=== PATIENT | female | born 1985 | race Caucasian/White ===

== ENCOUNTER 2018-02-27 08:24 | Day surgery (SDC) | payer OTHER ==
--- NOTE | 2018-02-27 20:09 | SS ---
DATE OF SERVICE: 02/27/2018 LABOR AND DELIVERY TRIAGE EVALUATION NOTE REGULAR PHYSICIAN: Valeria Paulino M.D. EVALUATING PHYSICIAN: Dave Richmond M.D. CHIEF COMPLAINT: Contractions at home. HISTORY OF PRESENT ILLNESS: Ms. Rivera is a 31-year-old white G2, P1-0-0-1 with an estimated date of confinement of 03/14/2018 who presents complaining of uterine contractions at home since 02:00 a.m. She denies ruptured membranes or vaginal bleeding. Her care with Dr. Paulino has been reportedly uncomplicated. PAST OBSTETRICAL HISTORY: Includes 1 vaginal delivery at term of a 7-pound . PAST MEDICAL HISTORY: None. PAST SURGICAL HISTORY: None. CURRENT MEDICATIONS: vitamins. ALLERGIES: PENICILLIN, which gives her a rash. SOCIAL HISTORY: She smokes, but she denies alcohol or illicit drug use. FAMILY HISTORY: Denies pelvic malignancy. REVIEW OF SYSTEMS: Contractions at home, but denies nausea, vomiting, fever, chills, ruptured membranes or vaginal bleeding. PHYSICAL EXAMINATION: VITAL SIGNS: Blood pressure in triage is 119/68, pulse is 80, respirations 20, temperature 98.7, O2 saturation 100% on room air. ABDOMEN: Soft, nontender and gravid. Vaginal examination initially by the labor nurse in triage shows her to be 2 cm dilated, 50% effaced with the vertex presenting. heart rate tracing is stable. No decelerations are seen. The patient is orally hydrated over the hour and she is reexamined by me. Her vaginal exam is unchanged at 2, 50% with the vertex high and the cervix posterior. ASSESSMENT: 1. 37-week intrauterine . 2. No evidence of active labor at this time. PLAN: The patient will be discharged at this time to rest at home and keep herself hydrated. She was given complete labor precautions and voices understanding of her discharge instructions. [facility]Jose
== END 2018-02-27 10:05 | disposition home health service (06) ==
LOC: L&D/OP 08:24
PROVIDERS: ATTEND Obstetrics & Gynecology
DX: O47.1 False labor at or after 37 completed weeks of gestation (principal); O99.333 Smoking (tobacco) complicating pregnancy, third trimester; F17.200 Nicotine dependence, unspecified, uncomplicated; Z88.0 Allergy status to penicillin; Z79.899 Other long term (current) drug therapy; Z3A.37 37 weeks gestation of pregnancy
CPT/HCPCS: 99283

== ENCOUNTER 2018-02-28 00:26 | Inpatient (IN) | payer OTHER ==
[2018-02-28] MEDS ORDERED: HYDROcodone/Acetaminophen 5/325 mg Tablet PO PRN ×2 (00:55)
[2018-02-28] MEDS ORDERED: NS / Oxytocin 40 units/1000ml 1,000 ML IV PRN (00:55)
[2018-02-28] MEDS ORDERED: Misoprostol 200 MCG TAB PR PRN (00:55)
[2018-02-28] MEDS ORDERED: Lidocaine 1% (PF) 30 ML VIAL SC PRN (00:55)
[2018-02-28] MEDS ORDERED: Butorphanol Tartrate 1 MG/ML VIAL SLOW IVP PRN (00:55)
[2018-02-28] MEDS ORDERED: Ibuprofen 800 MG TAB PO PRN (00:55)
[2018-02-28] MEDS ORDERED: Ondansetron HCl/PF 4 MG/2 ML Vial IVP PRN ×3 (00:55→04:02)
[2018-02-28] MEDS ORDERED: Promethazine HCl 25 MG/ML VIAL IM PRN ×2 (00:55→02:22)
[2018-02-28] MEDS ORDERED: Lactated Ringer's 1,000 ML IV SCH ×2 (01:00→02:00)
--- NOTE | 2018-02-28 01:02 | PDOC.LDHP ---
Labor and Delivery H&P Chief complaint: contractions HPI: 31 yo WF EDC= 03/14/2018 seen earlier today presents with painful UCs q 3-5 mins. Denies SRM or bleeding. Current gestational age (weeks): 38 Due date: 03/14/18 Dating criteria: last menstrual period Grav: 2 Para: 1 OB History Details: PNC with Dr. Paulino, is a smoker Current complications: none Abnormal US findings: No Past Medical History: none Current medications: pre- vitamins Previous surgical history: none Allergies/Adverse Reactions: Allergies Allergy/AdvReac Type Severity Reaction Status Date / Time diphenhydramine Allergy Severe Anaphylaxis Verified 10/09/16 03:37 [From Benadryl] penicillin G Allergy Severe Anaphylaxis Verified 10/09/16 03:32 egg Allergy Intermediate Nausea Verified 10/09/16 03:32 Social history: tobacco use - Physical Exam General: breathing through contractions Lungs: nonlabored breathing Abdomen: gravid Extremeties: trace edema FHT: variability present [place] contractions every: q 5 mins - Vaginal Exam cm dilated: 4 Effacement: 90% Station: -1 - OB Labs Blood type: A RH: positive Antibody Screen: negative HIV: negative RPR: negative HEPSAg: negative 1 hour GCT: negative GBS: negative Rubella: immune - Assessment L&D Assessment: term patient in labor - Plan Plan: admit to L&D, anesthesia consult for pain management (Dr. Laughlin notified)
[2018-02-28 01:13] LABS: Mean Corpuscular HGB CONC 36.1 g/dL (32.0-36.0); Mean Corpuscular Hemoglobin 32.8 pg (27.0-31.0); Mean Corpuscular Volume 90.9 fL (78.0-98.0); Mean Platelet Volume 8.2 fL (7.4-10.4); Platelet Count 210 thou/uL (130-400); RBC Distribution Width 11.7 % (11.5-14.5); Red Blood Cell (RBC) Count 3.06 mill/uL (4.20-5.40); White Blood Cell (WBC) Count 14.5 thou/uL (4.8-10.8)
[2018-02-28] MEDS ORDERED: Bupivacaine 0.75% 13.4 ML, fentaNYL Citrate/PF 400 MCG in Sodium Chloride 0.9% 78.6 ML EPIDURAL SCH (01:30)
[2018-02-28 01:49] LABS: HBSAg Index 0.23 S/CO (0-0.99); Hep B Surf Ag Non-Reactive S/CO (NonReactive)
[2018-02-28 01:59] VITALS: BMI 25.7
[2018-02-28] MEDS ORDERED: Lactated Ringer's 500 ML IV PRN (02:22)
[2018-02-28] MEDS ORDERED: Eucerin (Mineral Oil/Petrolatum,White) 30 gm Jar TOP PRN (02:22)
[2018-02-28] MEDS ORDERED: ePHEDrine/0.9% NaCl/PF SYRINGE 50 mg/10 ml SLOW IVP PRN (02:22)
[2018-02-28] MEDS ORDERED: Acetaminophen 325 MG TAB PO PRN (02:22)
[2018-02-28] MEDS ORDERED: Naloxone HCl 0.4 mg/ml Vial IVP PRN ×2 (02:22)
[2018-02-28] MEDS ORDERED: Communication Order-Pharmacy FS SCH (02:30)
[2018-02-28] MEDS ORDERED: Fentanyl 4mcg/Marcaine 0.1% Cassette 100 ML EPIDURAL SCH (02:30)
[2018-02-28] MEDS ORDERED: NS / Oxytocin 40 units/1000ml 1,000 ML ONE (03:47)
[2018-02-28] MEDS ORDERED: Milk Of Magnesia 30 ML UDCUP PO PRN (04:02)
[2018-02-28] MEDS ORDERED: Preparation H Ointment 28 GM TUBE PR PRN (04:02)
[2018-02-28] MEDS ORDERED: Benzocaine/Menthol 20-0.5% 60 ML CAN TOP PRN (04:02)
[2018-02-28] MEDS ORDERED: Lanolin Ointment 7 GM TUBE TOP PRN (04:02)
[2018-02-28] MEDS ORDERED: Acetaminophen/Codeine 30-300mg Tablet PO PRN (04:02)
[2018-02-28] MEDS ORDERED: Bisacodyl 10 MG SUPP PR PRN (04:02)
[2018-02-28] MEDS ORDERED: Zolpidem Tartrate 5 MG TAB PO PRN (04:02)
[2018-02-28] MEDS ORDERED: NS / Oxytocin 40 units/1000ml 1,000 ML IV SCH (04:15)
[2018-02-28] MEDS ORDERED: Misoprostol 200 MCG TAB VAG SCH (04:15)
[2018-02-28] MEDS ORDERED: Adacel (T-DAP) 0.5 ML VIAL IM ONE (05:00)
[2018-02-28 06:14] LABS: Syphilis Antibody Nonreactive (Nonreactive); Syphilis Antibody Index 0.09 S/CO (<1.00 Non-Reactive)
[2018-02-28] MEDS: Docusate Calcium (SURFAK) 240 MG CAP PO SCH ×2 (07:54→21:19)
[2018-02-28] MEDS: Ibuprofen 800 MG TAB PO SCH ×3 (07:54→21:19)
[2018-02-28] MEDS: Prenatal Vitamin 1 TAB PO SCH (07:54)
[2018-02-28] MEDS: Ferrous Sulfate 325 MG TAB PO SCH ×2 (07:54→17:59)
[2018-02-28] MEDS ORDERED: Bupivacaine 0.25% HCL 30 ML VIAL ONE (17:45)
[2018-02-28] MEDS: Acetaminophen/Codeine 30-300mg Tablet PO PRN (17:59)
[2018-03-01 04:54] LABS: Hemoglobin 7.9 g/dL (12.0-16.0); Mean Corpuscular HGB CONC 35.1 g/dL (32.0-36.0); Mean Corpuscular Hemoglobin 32.7 pg (27.0-31.0); Mean Corpuscular Volume 93.3 fL (78.0-98.0); Mean Platelet Volume 8.4 fL (7.4-10.4); Platelet Count 183 thou/uL (130-400); RBC Distribution Width 11.9 % (11.5-14.5); Red Blood Cell (RBC) Count 2.43 mill/uL (4.20-5.40); White Blood Cell (WBC) Count 10.9 thou/uL (4.8-10.8)
[2018-03-01] MEDS: Ibuprofen 800 MG TAB PO SCH (06:46)
[2018-03-01] MEDS: Acetaminophen/Codeine 30-300mg Tablet PO PRN (06:50)
[2018-03-01 08:19] VITALS: BP 111/59; TEMP 97.8
[2018-03-01] MEDS: Prenatal Vitamin 1 TAB PO SCH (09:50)
[2018-03-01] MEDS: Ferrous Sulfate 325 MG TAB PO SCH (09:50)
[2018-03-01] MEDS: Docusate Calcium (SURFAK) 240 MG CAP PO SCH (09:51)
== END 2018-03-01 13:50 | disposition home or self-care (01) | DRG 775 ==
LOC: L&D/OP 00:26 → L&D 01:25 → 3SW 06:33
PROVIDERS: ADMIT Obstetrics & Gynecology; ATTEND Obstetrics & Gynecology
PROC: 10E0XZZ Delivery of Products of Conception, External Approach (ICD-10-PCS; principal; 2018-02-28)
PROC: 0KQM0ZZ Repair Perineum Muscle, Open Approach (ICD-10-PCS; 2018-02-28)
DX: O70.1 Second degree perineal laceration during delivery (principal); Z37.0 Single live birth; Z3A.38 38 weeks gestation of pregnancy
CPT/HCPCS: 36415; 51702; 85027; 86780; 86850; 86900; 86901; 87340; 99283; 99285; J3010; J7050; S0020

== ENCOUNTER 2019-07-05 23:56 | Inpatient (IN) | payer OTHER ==
[~2019-07-05 23:56] MED LIST: Bupivacaine/Epinephrine 0.25% 30 ML VIAL ONE
[2019-07-06] MEDS: Lactated Ringer's 1,000 ML IV SCH ×3 (00:25→16:42)
[2019-07-06] MEDS ORDERED: Misoprostol 200 MCG TAB PR PRN (00:28)
[2019-07-06] MEDS ORDERED: HYDROcodone/Acetaminophen 5/325 mg Tablet PO PRN ×4 (00:28→12:58)
[2019-07-06] MEDS ORDERED: Promethazine HCl 25 MG/ML VIAL IM PRN ×2 (00:28→09:28)
[2019-07-06] MEDS ORDERED: NS / Oxytocin 40 units/1000ml 1,000 ML IV PRN (00:28)
[2019-07-06] MEDS ORDERED: Docusate 100 MG CAP PO PRN (00:28)
[2019-07-06] MEDS ORDERED: Lidocaine 1% (PF) 30 ML VIAL SC PRN (00:28)
[2019-07-06] MEDS ORDERED: Ibuprofen 800 MG TAB PO PRN (00:28)
[2019-07-06] MEDS ORDERED: Ondansetron PF 4 MG/2 ML Vial IVP PRN ×3 (00:28→12:58)
[2019-07-06] MEDS ORDERED: Butorphanol Tartrate 1 MG/ML VIAL SLOW IVP PRN (00:28)
[2019-07-06] MEDS ORDERED: hydrALAZINE 20 MG/ML VIAL SLOW IVP PRN ×2 (00:28→12:58)
[2019-07-06] MEDS ORDERED: NS w/ Oxytocin 10 units 500 ML IV SCH (00:30)
[2019-07-06 01:15] LABS: Hemoglobin 10.5 g/dL (12.0-16.0); Mean Corpuscular HGB CONC 36.2 g/dL (32.0-36.0); Mean Corpuscular Hemoglobin 33.9 pg (27.0-31.0); Mean Corpuscular Volume 93.8 fL (78.0-98.0); Mean Platelet Volume 7.8 fL (7.4-10.4); Platelet Count 215 thou/uL (130-400); RBC Distribution Width 11.4 % (11.5-14.5); Red Blood Cell (RBC) Count 3.11 mill/uL (4.20-5.40); White Blood Cell (WBC) Count 13.7 thou/uL (4.8-10.8)
[2019-07-06 01:25] VITALS: BMI 24.7
[2019-07-06 01:46] LABS: HBSAg Index 0.14 S/CO (0-0.99); Hep B Surf Ag Non-Reactive S/CO (NonReactive)
[2019-07-06 04:46] LABS: Syphilis Antibody Nonreactive (Nonreactive); Syphilis Antibody Index 0.09 S/CO (<1.00 Non-Reactive)
[2019-07-06] MEDS ORDERED: Fentanyl 4 mcg/Bup 0.1% Cadd 100 ML ONE (07:06)
[2019-07-06] MEDS ORDERED: Naloxone HCl 0.4 mg/ml Vial IVP PRN ×2 (09:28)
[2019-07-06] MEDS ORDERED: ePHEDrine/0.9% NaCl/PF SYRINGE 50 mg/10 ml SLOW IVP PRN (09:28)
[2019-07-06] MEDS ORDERED: Acetaminophen 325 MG TAB PO PRN (09:28)
[2019-07-06] MEDS ORDERED: Lactated Ringer's 500 ML IV PRN (09:28)
[2019-07-06] MEDS ORDERED: Communication Order-Pharmacy FS PRN (09:30)
[2019-07-06] MEDS ORDERED: Fentanyl 4 mcg/Bupivacaine 0.1% Cassette 100 ML EPIDURAL SCH (09:30)
[2019-07-06] MEDS ORDERED: NS / Oxytocin 40 units/1000ml 1,000 ML ONE (11:39)
[2019-07-06] MEDS ORDERED: Preparation H Ointment 28 GM TUBE PR PRN (12:58)
[2019-07-06] MEDS ORDERED: Zolpidem Tartrate 5 MG TAB PO PRN (12:58)
[2019-07-06] MEDS ORDERED: Bisacodyl 10 MG SUPP PR PRN (12:58)
[2019-07-06] MEDS ORDERED: Milk Of Magnesia 30 ML UDCUP PO PRN (12:58)
[2019-07-06] MEDS ORDERED: Adacel (T-DAP) 0.5 ML SYRINGE IM ONE (12:58)
[2019-07-06] MEDS ORDERED: Benzocaine-Menthol 82.5 ML CAN TOP PRN (12:58)
[2019-07-06] MEDS ORDERED: NS / Oxytocin 40 units/1000ml 1,000 ML IV SCH (13:00)
[2019-07-06] MEDS: Ibuprofen 800 MG TAB PO SCH ×2 (16:03→23:33)
--- NOTE | 2019-07-06 16:47 | DN ---
DATE OF PROCEDURE: 07/06/2019 PREOPERATIVE DIAGNOSES: 1. A 33-year-old, G3, P 2-0-0-2 with spontaneous rupture of membranes at approximately 11:30 p.m. on 07/05 with clear fluid at 37 weeks' gestation. 2. Group B Streptococcus negative. 3. complicated by continued tobacco abuse. 4. Short interval . POSTOPERATIVE DIAGNOSES: 1. A 33-year-old, G3, P 2-0-0-2 with spontaneous rupture of membranes at approximately 11:30 p.m. on 07/05 with clear fluid at 37 weeks' gestation. 2. Group B Streptococcus negative. 3. complicated by continued tobacco abuse. 4. Short interval . 5. Live-born male with Apgars of 9 and 9 at one and five minutes respectively. PROCEDURE PERFORMED: Spontaneous vaginal delivery. CLINICAL HISTORY: This patient is a 33-year-old, G3, P2, who presented at 37 weeks with a complaint of spontaneous rupture of membranes at 11:30 p.m. The cord was grossly present on exam. She was immediately admitted and monitoring revealed a category 1 tracing with low variability. The patient was given IV fluids and some juice and the tracing improved to moderate variability. She was started on Pitocin after the tracing improved and maintained 2 cm throughout the remaining of the night. However, in the morning, she was noted to be 4 cm, 80% effaced, and -2 station. The Pitocin continued. She did have an epidural for maternal analgesia and continued to progress appropriately on the labor curve until complete and +2 station. DESCRIPTION OF PROCEDURE: With good maternal effort, the patient was able to push the vertex. Within 2 to 3 pushes to crown and deliver, the head was delivered in the JOY position. The anterior shoulder followed by the posterior shoulder followed by the remainder of the infant's body was delivered. The was stimulated and cleansed and vigorously cried. The cord was doubly clamped and then cut by the father and the infant was placed on the maternal abdomen for continued care. The cord blood was obtained and the uterus was massaged and the placenta was delivered spontaneously intact with a 3-vessel cord. Exploration of the vagina, introitus, and cervix noted a first-degree perineal tear at the base, which was repaired in a usual running fashion with excellent hemostasis. The patient tolerated the procedure well and was cleansed of all debris and sat in the recovery position. She recovered with her infant on her chest during [id number]. Again, the infant was a live born male with Apgars of 9 and 9 at one and five minutes respectively and he voided shortly after delivery. All needle, sponge, lap, and instrument counts were correct x2 at the end of the procedure and there were no other issues. Job ID: [id number]
[2019-07-06] MEDS: Ferrous Sulfate 325 MG TAB PO SCH (18:33)
[2019-07-06] MEDS ORDERED: FLU VACC QS2019-20(6MOS UP)/PF 60 MCG/0.5 ML SYRINGE IM ONE (21:00)
[2019-07-06] MEDS: Docusate Calcium (SURFAK) 240 MG CAP PO SCH (23:33)
[2019-07-07] MEDS: Lactated Ringer's 1,000 ML IV SCH ×2 (02:33→08:29)
[2019-07-07] MEDS: Ibuprofen 800 MG TAB PO SCH (06:02)
[2019-07-07] MEDS: Docusate Calcium (SURFAK) 240 MG CAP PO SCH (08:29)
[2019-07-07] MEDS: Ferrous Sulfate 325 MG TAB PO SCH (08:29)
[2019-07-07] MEDS ORDERED: Prenatal Vitamin 1 TAB PO SCH (09:00)
[2019-07-07 11:24] VITALS: BP 118/60; TEMP 98.3
[2019-07-07] MEDS ORDERED: Ondansetron ODT 4 MG TAB PO SCH (13:45)
== END 2019-07-07 16:40 | disposition home or self-care (01) | DRG 807 ==
LOC: L&D/OP 23:56 → L&D 07-06 01:47 → 3SW 07-06 16:36
PROVIDERS: ADMIT Obstetrics & Gynecology; ATTEND Obstetrics & Gynecology
PROC: 10E0XZZ Delivery of Products of Conception, External Approach (ICD-10-PCS; principal; 2019-07-06)
PROC: 0HQ9XZZ Repair Perineum Skin, External Approach (ICD-10-PCS; 2019-07-06)
DX: O99.333 Smoking (tobacco) complicating pregnancy, third trimester (principal); Z37.0 Single live birth; F17.200 Nicotine dependence, unspecified, uncomplicated; Z3A.37 37 weeks gestation of pregnancy; O70.0 First degree perineal laceration during delivery
CPT/HCPCS: 36415; 51702; 85027; 86780; 86850; 86900; 86901; 87340; 99285; J2590; Q0162